=== PATIENT | male | born 1960 | race Two or more races ===

== ENCOUNTER 2018-01-01 02:41 | Emergency (ER) | payer SELFPAY, OTHER ==
[2018-01-01 03:35] LABS: URINE BLOOD (Dip) POC 1+ (NEGATIVE); URINE KETONES (Dip) POC 3+ (NEGATIVE); URINE LEUKOCYTE EST (Dip) POC Negative (NEGATIVE); URINE NITRITE (Dip) POC Negative (NEGATIVE); URINE TOTAL PROTEIN POC 1+ (NEGATIVE)
[2018-01-01] MEDS ORDERED: KETOROLAC 60 MG INJ IM (04:24)
== END 2018-01-01 04:39 | disposition home or self-care (01) ==
LOC: E/R 02:41
DX: N23 Unspecified renal colic (principal); E11.9 Type 2 diabetes mellitus without complications
CPT/HCPCS: 81003; 99283